=== PATIENT | female | born 1970 | race Two or more races ===

== ENCOUNTER 2017-08-23 09:14 | Day surgery (SDC) | payer BC, OTHER ==
[2017-08-23 09:58] VITALS: BMI 22.4
[2017-08-23] MEDS ORDERED: LIDOCAINE HCL/PF 2% SDV 5ML VIAL ONE (10:20)
[2017-08-23] MEDS ORDERED: PROPOFOL 20 ML ONE ×3 (10:20)
[2017-08-23 10:58] VITALS: TEMP 98.1
[2017-08-23] MEDS ORDERED: ACETAMINOPHEN INJECTION 100 ML IVPB ONE (12:27)
[2017-08-23 13:55] VITALS: BP 113/69; PULSE 71
== END 2017-08-23 13:55 | disposition home or self-care (01) ==
LOC: JASU-ENDO 09:14
PROVIDERS: ATTEND Internal Medicine Cardiovascular Disease
PROC: B246ZZ4 Ultrasonography of Right and Left Heart, Transesophageal (ICD-10-PCS; principal; 2017-08-23 10:00)
DX: Z86.73 Personal history of transient ischemic attack (TIA), and cerebral infarction without residual deficits (principal); R50.9 Fever, unspecified
CPT/HCPCS: 84703; 93312; 93325

== ENCOUNTER → 2017-08-30 | Day surgery (SDC) | payer BC ==
--- NOTE | 2017-08-31 15:29 | PATH ---
Cytology Non-Gynecological Report Patient Name: NEYDA SCALES [facility]. Rec. #: [id number] /Age/Gender: 1970 (Age: 46) / F Account: [id number] Location: RADIOLOGY Taken: 08/30/2017 Received: 08/30/2017 Reported: 08/31/2017 Physicians: Jewell Feliz M.D. Specimen(s) Received RIGHT THYROID FNA Clinical History Right thyroid nodule, 3.40 x 1.36 x 1.09 cm Final Diagnosis THYROID, RIGHT, FINE NEEDLE ASPIRATION: SATISFACTORY FOR EVALUATION. BETHES[place] CLASS II: BENIGN. CYTOLOGIC FINDINGS ARE CONSISTENT WITH A BENIGN FOLLICULAR NODULE WITH CYSTIC CHANGE. FOLLICULAR CELLS WITH REACTIVE AND METAPLASTIC CHANGES IN A BACKGROUND OF ABUNDANT COLLOID AND SCATTERED MACROPHAGES Electronically Signed Candie Burroughs M.D. Gross Description Received are eight direct smears, four of which are air-dried and Diff-Quik stained, and four of which are alcohol fixed and Pap stained. Also received is 20 ml of bloody formalin from which one cellblock is prepared.
== END | disposition home or self-care (01) ==
LOC: JRADIR 09:26
PROVIDERS: ATTEND Otolaryngology
PROC: 0G9G3ZX Drainage of Left Thyroid Gland Lobe, Percutaneous Approach, Diagnostic (ICD-10-PCS; principal; 2017-08-30)
PROC: BG44ZZZ Ultrasonography of Thyroid Gland (ICD-10-PCS; 2017-08-30)
DX: E04.1 Nontoxic single thyroid nodule (principal)
CPT/HCPCS: 10022; 76942; 88173; 88305-TC